=== PATIENT | female | born 1945 | race Caucasian/White ===

== ENCOUNTER 2017-06-22 12:54 | Emergency (ER) | payer MEDICARE ==
--- NOTE | 2017-06-22 15:14 | UC ---
Back Pain HPI - HPI Summary HPI Summary: 72 yo female with a long history of left sciatica (yrs) Has been to PT for it Has had imaging but she can't remember when it was done It has worsened over the past couple of weeks and she is worried about potentially being called for jury duty and would like a note pain radiates down left leg from buttock to foot left lateral thigh numb no bowel or bladder dysfunction - History of Current Complaint Chief Complaint: UCBackPain Stated Complaint: PAIN DOWN LEG Time Seen by Provider: 06/22/17 14:52 Hx Obtained From: Patient Hx Last Menstrual Period: tubal ligation Onset/Duration: Gradual Onset, Lasting Weeks - yr, Worse Since - x weeks Timing: Constant Severity Initially: Moderate Severity Currently: Moderate Pain Intensity: 6 Pain Scale Used: 0-10 Numeric Back Pain: Is Discrete @ - left buttock, Radiates To - left leg Character: Aching, Throbbing Aggravating Factor(s): Other - sitting Alleviating Factor(s): Position, Other - PT excercoses Associated Signs And Symptoms: Positive: Numbness, Tingling Related History: Similar Episode Dx As - sciatica - Allergies/Home Medications Allergies/Adverse Reactions: Allergies Allergy/AdvReac Type Severity Reaction Status Date / Time Methylisothiazolinone Allergy Unknown Verified 06/22/17 13:46 Reaction Details Home Medications: Home Medications Amlodipine Besylate [Norvasc 10 mg tab] 10 mg PO DAILY WITH MEAL 06/22/17 [ History Confirmed 06/22/17] Apixaban* [Eliquis*] 5 mg PO BID 06/22/17 [History Confirmed 06/22/17] Nystatin-Triamcinolone [Nystatin/Triamcinolone 523734-4.1 Unit/gm-%] 1 oin EX SEE INSTRUCTIONS PRN 06/22/17 [History Confirmed 06/22/17] Omeprazole [Prilosec] 20 mg PO DAILY 06/22/17 [History Confirmed 06/22/17] Quinapril HCl 40 mg PO DAILY 06/22/17 [History Confirmed 06/22/17] Rosuvastatin Calcium [Crestor] 40 mg PO DAILY 06/22/17 [History Confirmed ] PMH/Surg Hx/FS Hx/Imm Hx Endocrine History: Dyslipidemia Cardiovascular History: Hypertension, Other - AAA Other Cardiovascular History: AAA repair - Surgical History Surgical History: Yes Surgery Procedure, Year, and Place: tubal ligation. two aneurysms surgery in 2017 with stents - Family History Known Family History: Positive: Cardiac Disease, Hypertension - Social History Alcohol Use: None Substance Use Type: None Smoking Status (MU): Former Smoker Length of Time of Smoking/Using Tobacco: 35 Review of Systems Constitutional: Negative Skin: Negative Eyes: Negative ENT: Negative Respiratory: Negative Cardiovascular: Negative Gastrointestinal: Negative Genitourinary: Negative Motor: Negative Neurovascular: Negative Musculoskeletal: Arthralgia, Myalgia Neurological: Paresthesia, Numbness Psychological: Negative Is Patient Immunocompromised?: No All Other Systems Reviewed And Are Negative: Yes Physical Exam Triage Information Reviewed: Yes Appearance: Well-Appearing, Well-Nourished, Ill-Appearing Vital Signs: Initial Vital Signs Temp 36.9 F 06/22/17 13:31 Pulse 46 06/22/17 13:31 Resp 18 06/22/17 13:31 BP 148/68 06/22/17 13:31 Pulse Ox 98 06/22/17 13:31 Eyes: Positive: Conjunctiva Clear ENT: Positive: Normal ENT inspection Dental Exam: Normal Neck: Positive: Supple Respiratory: Positive: Lungs clear, Normal breath sounds, No respiratory distress, No accessory muscle use Cardiovascular: Negative: RRR - reg rhythm with extrasystoles, Bradycardia - pulse 72 during my exam Abdomen Description: Positive: Nontender, Other: - no pulsitile mass Musculoskeletal: Positive: Other: - SLR on left at 30 degrees Neurological: Positive: Alert, Other: - decreased left patellar reflex Psychological Exam: Normal Skin Exam: Normal Back Pain Course/Dx - Differential Dx/Diagnosis Provider Diagnoses: worsening of chronic left sciatica Discharge - Discharge Plan Condition: Stable Disposition: HOME Prescriptions: Methylprednisolone [Medrol Dosepak 4 MG*] 0 mg PO .SEE RAMÓN INSTRUCTION #1 tab Patient Education Materials: Sciatica (ED) Forms: *Gen. Provider Communication Referrals: Ariane Castillo MD [Primary Care Provider] - As Soon As Possible
[2017-06-22 15:29] VITALS: BP 144/86
== END 2017-06-22 15:29 | disposition home or self-care (01) ==
LOC: UCEAST 12:54
DX: M54.32 Sciatica, left side (principal); E78.5 Hyperlipidemia, unspecified; I10 Essential (primary) hypertension; Z86.79 Personal history of other diseases of the circulatory system; Z95.5 Presence of coronary angioplasty implant and graft; Z87.891 Personal history of nicotine dependence
CPT/HCPCS: 99202; G0463